=== PATIENT | male | born 1990 | race Caucasian/White ===

== ENCOUNTER 2016-12-12 04:24 | Emergency (ER) | payer MEDICARE, OTHER ==
[~2016-12-12] VITALS: Ht 180.3 cm; Wt 77.1 kg
[2016-12-12 05:28] LABS: Urine RBC None Seen /hpf (0 - 3)
[2016-12-12 05:34] LABS: Urine Bilirubin Negative (Negative); Urine Blood Negative /uL (Negative); Urine Color Yellow (Yellow); Urine Glucose Normal (Normal); Urine Ketone Negative (Negative); Urine Nitrite Negative (Negative); Urine Urobilinogen Normal (Negative); Urine pH 5.5 (5.0-8.0)
[2016-12-12 06:02] VITALS: BP 140/54
[2016-12-12 06:03] LABS: Basophils # (auto) 0.1 uL; Basophils % (auto) 0.4 % (0.0-2.0); DEFINITIVE VIEW TRANSMISSION; Eosinophils # (auto) 0.1 uL; Eosinophils % (auto) 0.7 % (0.0-7.0); Hematocrit 46.7 % (41.0-53.0); Lymphocytes # (auto) 2.3 uL; Lymphocytes % (auto) 13.9 % (10.0-50.0); Mean Corpuscular Hgb Conc. 34.3 g/dL (32.0-36.0); Mean Corpuscular Volume 90.5 fL (80.0-100.0); Mean Platelet Volume 8.5 fL (7.4-10.4); Monocytes # (auto) 1.7 uL; Monocytes % (auto) 10.3 % (0.0-12.0); Neutrophils # (auto) 12.5 uL; Neutrophils % (auto) 74.7 % (37.0-80.0); Platelet Count (auto) 360 10^3/uL (140-450); Red Cell Distribution Width 12.4 % (11.6-16.0); White Blood Cell 16.7 10^3/uL (4.4-10.8)
[2016-12-12 06:20] LABS: Salicylate < 1.7 mg/dL (2.8-20.0)
[2016-12-12 06:21] LABS: Anion Gap 11 (5-15); Blood Urea Nitrogen 23 mg/dL (7-18); Calcium 9.6 mg/dL (8.5-10.1); Carbon Dioxide 26 mmol/L (21-32); Chloride 98 mmol/L (98-107); Glucose 80 mg/dL (74-106); Potassium 3.4 mmol/L (3.5-5.1); Sodium 135 mmol/L (136-145)
[2016-12-12 06:23] LABS: Aspartate Aminotransferase 30 U/L (15-37); BUN/Creatinine Ratio 16.3; GFR African American 78 mL/min; GFR Non-African American 64 mL/min
[2016-12-12 06:24] LABS: Acetaminophen < 2.0 ug/mL (10-30)
[2016-12-12 06:25] LABS: Alkaline Phosphatase 160 U/L (45-117); Bilirubin, Total 0.5 mg/dL (0.2-1.0); Total Protein 8.8 g/dL (6.4-8.2)
== END 2016-12-12 06:50 | disposition left against medical advice (07) ==
LOC: ER 04:33
DX: R00.1 Bradycardia, unspecified (principal); Z53.21 Procedure and treatment not carried out due to patient leaving prior to being seen by health care provider; V43.52XA Car driver injured in collision with other type car in traffic accident, initial encounter; Y93.89 Activity, other specified; Y92.89 Other specified places as the place of occurrence of the external cause; Y99.8 Other external cause status
CPT/HCPCS: 36415; 80053; 80307; 80320; 80329; 81001; 85025